=== PATIENT | female | born 1945 | race Caucasian/White ===

== ENCOUNTER → 2023-10-01 07:55 | Outpatient (REF) | payer OTHER, SELFPAY | LOC: HWWDC 07:55 | PROVIDERS: ATTENDING PHYSICIAN Physician Assistant Medical | DX: Z12.31 Encounter for screening mammogram for malignant neoplasm of breast (principal) | CPT/HCPCS: 77063; 77067 ==

== ENCOUNTER → 2024-11-17 11:48 | Outpatient (REF) | payer OTHER, SELFPAY | LOC: HWWDC 11:48 | PROVIDERS: ATTENDING PHYSICIAN Physician Assistant Medical | DX: Z12.31 Encounter for screening mammogram for malignant neoplasm of breast (principal) | CPT/HCPCS: 77063; 77067 ==

== ENCOUNTER → 2024-12-06 09:02 | Outpatient (REF) | payer OTHER, SELFPAY | LOC: WDC 09:02 | PROVIDERS: ATTENDING PHYSICIAN Physician Assistant Medical | DX: R92.8 Other abnormal and inconclusive findings on diagnostic imaging of breast (principal) | CPT/HCPCS: 76642 ==

== ENCOUNTER 2024-12-31 16:08 | Inpatient (IN) | payer OTHER, SELFPAY ==
[2024-12-31 09:25] VITALS: BP 121/71
[2024-12-31 09:45] LABS: % Basophils 0.2 % (0-2); % Immature Granulocytes 0.5 % (0-0.5); % Lymphocytes 5.9 % (20.5-51.1); % Monocytes 8.9 % (1.7-9.3); % Neutrophils 84.5 % (42.2-75.2); Absolute Immature Granulocytes 0.1 10^3/uL (0-0.05); Absolute Lymphocytes 0.7 10^3/uL (1.2-3.4); Absolute Monocytes 1.1 10^3/uL (0.1-0.6); Absolute Neutrophils 10.5 10^3/uL (1.4-6.5); Hemoglobin 12.8 g/dL (12.0-16.0); Mean Corp Hgb Conc. 33.7 g/dL (33.0-37.0); Mean Corpuscular Hgb 29.5 pg (27.0-31.0); Mean Corpuscular Volume 87.6 fL (81.0-99.0); Mean Platelet Volume 10.3 fL (7.4-10.4); Nucleated Red Blood Cells % 0 %; Platelet Count 177 10^3/uL (130-400); Red Blood Cell Count 4.34 10^6/uL (4.20-5.40); Red Cell Dist. Width 13.3 % (11.5-14.5); White Blood Cell Count 12.4 10^3/uL (4.8-10.8)
[2024-12-31 10:00] LABS: ALT (SGPT) 43 U/L (0-35); AST (SGOT) 72 U/L (14-36); Albumin 3.7 g/dl (3.5-5.0); Alkaline Phosphatase 91 U/L (38-126); Blood Urea Nitrogen 19 mg/dl (7-17); Calcium 8.3 mg/dl (8.4-10.2); Carbon Dioxide 22 mmol/L (22-30); Chloride 103 mmol/L (98-107); Glucose 113 mg/dl (70-99); Potassium 3.9 mmol/L (3.5-5.1); Sodium 132 mmol/L (135-145); Total Bilirubin 0.6 mg/dl (0.2-1.3); Total Protein 6.9 g/dl (6.3-8.2); eGFR > 60.00
[2024-12-31 11:16] VITALS: BP 114/65
[2024-12-31 11:39] LABS: Urine Albumin 3+ (Neg - Trace); Urine Bilirubin Negative (Negative); Urine Character Slightly Cloudy (Clear); Urine Color Yellow; Urine Glucose Negative (Negative); Urine Ketone 3+ (Negative); Urine Leukocyte 3+ (Negative); Urine Nitrite Positive (Negative); Urine Occult Blood 4+ (Negative); Urine Urobilinogen Negative (Neg - 1+)
[2024-12-31 11:53] LABS: COVID-19 Antigen Negative (Negative)
[2024-12-31 11:57] LABS: Lactic Acid 1.2 mmol/L (0.7-2.0)
[2024-12-31 12:00] VITALS: BP 111/65
[2024-12-31] MEDS: NSS 1000 IV (12:00)
[2024-12-31 12:05] LABS: TSH Reflex To Free T4 0.67 uIU/ml (0.47-4.68)
[2024-12-31 12:09] LABS: Urine Bacteria Moderate (Negative); Urine White Cell >100 /HPF (0-5)
[2024-12-31 13:00] VITALS: BP 115/70
[2024-12-31] MEDS: ROCEPHIN 1000 MG IV (13:06)
--- NOTE | 2024-12-31 13:12 | ED.GENMED ---
History of Present Illness
General
Chief Complaint: Dizziness
Source: patient
Exam Limitations: none
Time Seen by Provider: 12/31/24 10:38
Nursing documentation reviewed up to this point in time: agreed with
History of Present Illness
History of Present Illness:
Pt presents to ED secondary to 3 day history of dizziness/nausea/back pain and decreased appetite, along with not feeling well and sleeping more. Denies fever. Denies vomiting/diarrhea. Denies recent travel. Denies sick contact. Denies recent change
in medications/diet. Denies dysuria/frequency. Denies previous history of similar symptoms.
Review of Systems
Review of Systems
Allergies reviewed?: Yes
All Other Systems: ROS reviewed and negative except as documented in HPI and ROS
Constitutional: Reports no symptoms
EENT: Reports no symptoms
Respiratory: Reports no symptoms
Cardiac: Reports no symptoms
ABD/GI: Reports nausea; Denies abdominal pain
: Reports no symptoms
Musculoskeletal: Reports back pain
Skin: Reports no symptoms
Neurological: Reports no symptoms
Phy Exam
Physical Exam
Physical Exam:
Physical Exam
General: mild distress, not acutely ill. afebrile
Head: nc/at. eomi
Neck: supple. no meningeal signs.
Heart: s1/s2 regular rate and rhythm
Lungs: no acute respiratory distress. clear bilaterally
Abdomen: normal bowel sounds. not tender.
Back: mild left CVA tenderness
Neuro: alert and oriented x 3. no focal neurological deficits
Skin: no rash
Psychiatric: well kept. interactive and cooperative
Extremities: no edema. no calf tenderness.
Course
Orders/Labs/Results
Orders:
Orders
12/31/24 09:28
Electrocardiogram (*1) Urgent
Reason for Study: Chest Pain
12/31/24 09:31
Complete Blood Count/With Diff Urgent
Comprehensive Metabolic Panel Urgent
Magnesium Urgent
Comment: ADD ON
TSH Reflex To Free T4 Urgent
Comment: ADD ON
12/31/24 11:01
Add On- LAB Urgent
Tests Added?: magnesium, TSH to reflex Free T4
12/31/24 11:04
0.9% Sodium Chloride 1000 ml [Nss] 1,000 ml IV BOLUS
12/31/24 11:23
COVID-19 Antigen Urgent
Source: Nasal Swab
Lactic Acid Q4H
Comment: CANCEL 2nd LACTIC ACID IF 1st LACTIC ACID IS LESS THAN 2
Urinalysis Reflex To Culture Urgent
Date Specimen was Collected: 12/31/24
Time Specimen was Collected: 11:09
Urine Microscopic Reflex Cult Urgent
Influenza A+B Rapid Molecular Urgent
YAMILE Source: Nasal Swab
Specimen Description:
Urine Culture Urgent
YAMILE Source: U
Specimen Description:
Date Specimen was Collected: 12/31/24
Time Specimen was Collected: 11:09
12/31/24 12:46
CT Abd/pel Without Iv Or Oral Urgent
Comment:
Reason For Exam: flank pain w hematuria
CefTRIAXone [Rocephin] 1,000 mg IV NOW STA
12/31/24 13:03
Sterile Water [Sterile Water For Injection] 10 ml .ROUTE .K-MED ONE
12/31/24 Dinner
Regular
At Your Request: Full Participation
Does patient need a safe tray?: No
12/31/24 15:17
Admit/Transfer Patient As Directed
Co-Sign Provider:
Level of Care: Inpatient admission
Assign to:: Medical/Surgical
Physician / Group: galen
Diagnosis: uti
Reason for Hospitalization: uti
Expected length of stay greater than two midnights?: Yes
ELOS- Estimated Length of Stay in days: 2
I certify the patient meets the requirements for IP care: Yes
Code Status As Directed
Resuscitation Status: Full Code
PRN Pain Medication Management As Directed
May give lesser potent ordered pain med per pt: Yes
preference::
Protocol:: Medication orders for pain may be administered in a
manner that supports deferring to patient preference
when the pt is:
- Requesting an ordered lesser potent pain medication.
Least to most potent pain medications are defined
as: acetaminophen < NSAID < tramadol < opioids
(morphine, oxycodone, hydromorphone).
- Requesting a lesser dose of the same medication IF
ORDERED.
- Requesting a less intrusive route of administration
if both routes are prescribed by the provider (PO <
IV).
12/31/24 16:16
Acetaminophen [Tylenol] 650 mg PO Q4HPRN PRN
CefTRIAXone [Rocephin] 1,000 mg IV Q24H
Ibuprofen [Motrin] 400 mg PO DAILYPRN PRN mild pain
Ondansetron Injectable [Zofran] 4 mg IV Q6HPRN PRN
Ondansetron Injectable [Zofran] 4 mg IV Q6HPRN PRN
12/31/24 16:16
Echo 2D MMode Color/Doppler Routine
Reason for Study: pericardial effusion
Activity As Directed
Activity Level: As Tolerated
Vital Signs As Directed
Frequency: Per unit guidelines
DX Deep Vein Thrombosis Video Routine
12/31/24 20:00
Heparin 5,000 units SC Q12
01/01/25 06:00
Complete Blood Count/With Diff IN AM
Comprehensive Metabolic Panel IN AM
01/01/25 08:00
Cholecalciferol (Vitamin D3) [VITAMIN D3 (cholecalciferol)] 25 mcg PO DAILY
Levothyroxine [Synthroid] 112 mcg PO DAILY
calcium citrate 250 mg PO DAILY
omega 5-jew-vlk-fish oil [Fish Oil] 1 cap PO DAILY
Abnormal Lab Results
12/31/24 12/31/24
09: 11:23
WBC 12.4 H 10^3/uL
(4.8-10.8)
Abs Immat Gran (auto) 0.1 H 10^3/uL
(0-0.05)
Absolute Neuts (auto) 10.5 H 10^3/uL
(1.4-6.5)
Absolute Lymphs (auto) 0.7 L 10^3/uL
(1.2-3.4)
Absolute Monos (auto) 1.1 H 10^3/uL
(0.1-0.6)
Neutrophils % 84.5 H %
(42.2-75.2)
Lymphocytes % 5.9 L %
(20.5-51.1)
Sodium 132 L mmol/L
(135-145)
BUN 19 H mg/dl
(7-17)
Glucose 113 H mg/dl
(70-99)
Calcium 8.3 L mg/dl
(8.4-10.2)
AST 72 H U/L
(14-36)
ALT 43 H U/L
(0-35)
Urine Ketones 3+ A
(Negative)
Ur Occult Blood Reflex 4+ A
(Negative)
Urine Nitrite (Reflex) Positive A
(Negative)
Leukocyte Esterase Rfl 3+ A
(Negative)
Urine WBC (Reflex) >100 A /HPF
(0-5)
Urine Bacteria (Reflex) Moderate A
(Negative)
Urine Albumin (Reflex) 3+ A
(Neg - Trace)
12/31/24 09:31
12/31/24 09:31
Vital Signs
Initial and Last Documented VS:
Initial Vital Signs
Temp Pulse Resp BP Pulse Ox
99.4 F 104 18 121/71 94
12/31/24 09:25 12/31/24 09:25 12/31/24 09:25 12/31/24 09:25 12/31/24 09:25
Last Documented Vital Signs
Temp Pulse Resp BP Pulse Ox
102 F H 84 19 118/59 91
12/31/24 16:00 12/31/24 16:00 12/31/24 16:00 12/31/24 16:00 12/31/24 16:00
MDM/Problems Addressed
MDM/Problems Addressed:
History, exam, and urinalysis consistent with likely UTI. However in light of patient's overall presentation along with back pain, will obtain CT abdomen pelvis to evaluate for potential kidney stone involvement. In addition, patient with clinical
concern for potential development of bacteremia. As such, will recommend admission for IV antibiotics.
CT report reviewed and discussed with the patient, including likely incidental finding of pericardial effusion.
*Pulse Oximetry
Patient hypoxic: yes (91%)
*Critical Care Note
Total Time (30-74mins, 75-104mins- exclusive of procedures): Not Applicable
ED Attending Note
-
Portions of this chart may have been created with voice recognition software.� Occasional wrong word or��sound alike� substitutions may have occurred due to the inherent limitations of voice recognition software.
Discharge Plan
Departure
Patient Disposition: Admit
Date of Disposition: 12/31/24
Time of Disposition: 14:48
Admit to: Telemetry
Presentation/result/management discussed w/ accepting MD/DO: Hospitalist
Discharge Problem:
Acute UTI
Interventions
Interventions:
*Risk Screen - Suicide Last Done: 12/31/24 09:25
*General Assessment Last Done: 12/31/24 09:25
*Neglect/Abuse Screening Last Done: 12/31/24 11:30
*ED- Fall Risk Assessment Last Done: 12/31/24 11:30
*ED COVID-19 Vaccine History Last Done: 12/31/24 16:23
*Nursing Disposition Last Done: 12/31/24 16:31
ED- Neurological Assessment Last Done: 12/31/24 11:30
ED Swallowing Screen Last Done: 12/31/24 11:30
Discharge Date and Time
Discharge Date/Time: 12/31/24 16:38
--- NOTE | 2024-12-31 15:19 | HPS.HSE ---
Family Physician
-
Family Physician: Nini San MD
Chief Complaint
-
abdominal pain
History of Present Illness
79-year-old female past medical history of hypothyroidism presenting with 3 days of dizziness, nausea and suprapubic abdominal pain radiating to her back and decreased appetite and not feeling well and sleeping more. No fevers but having chills.
No vomiting or diarrhea. No recent travel. No sick contacts. No recent change in medications. No urinary frequency or burning.
Drinks alcohol occasionally. Denies smoking.
Medical History
Past Medical History
Past Medical History: Reports Other (hypothyroidism)
Past Surgical History: Reports None
Social History
Tobacco: Non-smoker
Alcohol: Occasional
Drug: None
Family History
Family History: Not pertinent
Allergies / Home Medications
Allergies reflects when Allergies were last updated in [facility].
Home Medications with original date entered in [facility]
Allergy/Medication List:
Allergies
Allergy/AdvReac Type Severity Reaction Status Date / Time
NKA - No Known Allergies Allergy Unknown Uncoded 12/31/24 09:25
Review of Systems
-
History Source: Patient
A 12 point ROS was completed and negative except as noted: Yes
Constitutional: Reports No Symptoms
EENT: Reports No Symptoms
Respiratory: Reports No Symptoms
Cardiac: Reports No Symptoms
Abdomen/GI: Reports See HPI
: Reports No Symptoms
Musculoskeletal: Reports No Symptoms
Skin: Reports No Symptoms
Neurological: Reports No Symptoms
Endocrine: Reports No Symptoms
Hematologic/Lymphatic: Reports No Symptoms
Psych: Reports No Symptoms
Physical Exam
Vital Signs
Vital Signs
Temp Pulse Resp BP Pulse Ox
99.4 F 84 22 115/70 94
12/31/24 09:25 12/31/24 15:00 12/31/24 15:00 12/31/24 13:00 12/31/24 09:25
Physical Exam
General: Well Developed, Well Nourished and No Apparent Distress
HEENT: NormoCephalic, Moist mucous membranes and Atraumatic
Respiratory: Clear
Cardiac: S1/S2 and Regular Rhythm; No Murmur or Rub
GI: Soft, Non Distended, Normal Bowel Sounds and Tender (suprapubic ); No Organomegaly
Rectal: Deferred by Provider
Musculoskeletal: No Clubbing, No Cyanosis and No Edema
Skin: No Rash
Neuro: Nonfocal/grossly intact
Laboratory Results
-
12/31/24 09:31
12/31/24 09:31
Laboratory Results
Lactic Acid Cancelled 12/31/24 15:15
Total Bilirubin 0.6 mg/dl (0.2-1.3) 12/31/24 09:31
AST 72 U/L (14-36) H 12/31/24 09:31
ALT 43 U/L (0-35) H 12/31/24 09:31
Alkaline Phosphatase 91 U/L (38-126) 12/31/24 09:31
Data Reviewed
-
Lab Data: Labs Reviewed by me
Old Records: Reviewed
Impression/Plan
-
IMPRESSION:
PLAN:
# Urinary tract infection
-Leukocytosis
-COVID and flu negative
- Urinalysis showed greater than 100 WBC, +2 leukocyte esterase and positive nitrates, moderate bacteria,
- CT abdomen pelvis shows small to moderate-sized pericardial effusion, no other notable finding
-IV fluids given
- Urine culture
- Ceftriaxone
- Zofran
# Incidental small to moderate pericardial effusion
- Check echo
- Follow-up with cardiology
# Transaminitis unclear etiology
- May be chronic, outpatient follow-up
Hypothyroidism
- Continue levothyroxine
Full code
DVT prophylaxis�heparin
Regular diet
[2024-12-31 16:00] VITALS: BP 118/59; BMI 21.0
[2024-12-31] MEDS: TYLENOL 650 MG PO (17:56)
[2024-12-31] MEDS: ZOFRAN 4 MG IV (17:57)
[2024-12-31] MEDS: HEPARIN 5000 UNITS SC (20:55)
[2025-01-01] VITALS: BP 97/64
[2025-01-01] MEDS: TYLENOL 650 MG PO ×2 (02:14→22:33)
[2025-01-01 05:26] LABS: % Basophils 0.2 % (0-2); % Immature Granulocytes 0.1 % (0-0.5); % Monocytes 12.5 % (1.7-9.3); % Neutrophils 77.2 % (42.2-75.2); Absolute Lymphocytes 0.8 10^3/uL (1.2-3.4); Absolute Neutrophils 6.2 10^3/uL (1.4-6.5); Hematocrit 37.3 % (37.0-47.0); Hemoglobin 12.7 g/dL (12.0-16.0); Mean Corpuscular Volume 88.2 fL (81.0-99.0); Mean Platelet Volume 10.9 fL (7.4-10.4); Nucleated Red Blood Cells % 0 %; Platelet Count 169 10^3/uL (130-400); Red Blood Cell Count 4.23 10^6/uL (4.20-5.40); Red Cell Dist. Width 13.4 % (11.5-14.5)
[2025-01-01] MEDS: SYNTHROID 112 MCG PO (05:35)
[2025-01-01 05:42] LABS: ALT (SGPT) 37 U/L (0-35); AST (SGOT) 46 U/L (14-36); Albumin 3.3 g/dl (3.5-5.0); Alkaline Phosphatase 85 U/L (38-126); Blood Urea Nitrogen 16 mg/dl (7-17); Calcium 7.9 mg/dl (8.4-10.2); Carbon Dioxide 24 mmol/L (22-30); Chloride 107 mmol/L (98-107); Estimated Creatinine Clearance 48 ml/min; Glucose 88 mg/dl (70-99); Potassium 4.2 mmol/L (3.5-5.1); Sodium 136 mmol/L (135-145); Total Bilirubin 0.5 mg/dl (0.2-1.3); Total Protein 6.2 g/dl (6.3-8.2); eGFR > 60.00
[2025-01-01 05:44] VITALS: BMI 20.5
[2025-01-01 07:00] VITALS: BP 101/58
[2025-01-01] MEDS: OSCAL CAL 500 250 MG PO (09:49)
[2025-01-01] MEDS: VITAMIN D3 (cholecalciferol) 25 MCG PO (09:51)
[2025-01-01] MEDS: HEPARIN 5000 UNITS SC ×2 (09:51→19:37)
--- NOTE | 2025-01-01 12:01 | W.PN.HOSP.TC ---
Today's Communication/Plan
-
Continue with IV antibiotic
Await for echocardiogram
Await for culture data
Assessment / Plan
Assessment / Plan
# Sepsis likely secondary to suspected UTI (leukocytosis, fever, tachycardia)-poa
-Leukocytosis
-COVID and flu negative
- Urinalysis showed greater than 100 WBC, +2 leukocyte esterase and positive nitrates, moderate bacteria,
- CT abdomen pelvis shows small to moderate-sized pericardial effusion, no other notable finding
-IV fluids given
- Urine culture -pending in lab. If spikes fever again check blood cultures
- Ceftriaxone
- Zofran
# Incidental small to moderate pericardial effusion
- Check echo
- Blood pressure stable. Patient asymptomatic. Continue to monitor closely.
# Transaminitis unclear etiology
- May be chronic, outpatient follow-up
Hypothyroidism
- Continue levothyroxine
Full code
DVT prophylaxis�heparin
Regular diet
Anticipated Discharge: 24 - 48 hours
Subjective/Interval History
-
Date of Service: January 01, 2025
States some mild lower back discomfort
Denies any suprapubic abdominal pain
Denies any chest pain or shortness of breath
Objective Data
-
Labs:
Laboratory Results
01/01/25
05:01
WBC 8.0
Hgb 12.7
Hct 37.3
Plt Count 169
Sodium 136
Potassium 4.2
Chloride 107
Carbon Dioxide 24
BUN 16
Creatinine 0.8
Glucose 88
Calcium 7.9 L
Total Bilirubin 0.5
AST 46 H
ALT 37 H
Alkaline Phosphatase 85
Vital Signs:
Vital Signs
Temp Pulse Resp BP Pulse Ox
98.0 F 64 18 101/58 97
01/01/25 07:00 01/01/25 07:00 01/01/25 07:00 01/01/25 07:00 01/01/25 07:00
I&O
12/31/24 01/01/25 01/02/25
06:59 06:59 06:59
Intake Total 120 / 120
Balance 120 / 120
Physical Exam
-
General: Well Developed and No Apparent Distress
HEENT: Normocephalic, Atraumatic and Moist Mucous Membranes
Respiratory: Clear to Auscultation
Cardiac: Regular Rhythm and S1/S2; Negative Murmur, Rub or Gallop
GI: Soft, Nontender, Nondistended and Normal Bowel Sounds; Negative Organomegaly
Rectal: Deferred by Provider
Musculoskeletal: No Clubbing, No Cyanosis and No Edema
Skin: Negative Rash
Neuro: Awake and Nonfocal/Grossly Intact
Psych: Calm
Data Reviewed
-
Total Time Spent with Patient (in minutes): 55
[2025-01-01] MEDS: STERILE WATER FOR INJECTION 10 ML IV (14:19)
[2025-01-01] MEDS: ROCEPHIN 1000 MG IV (14:19)
[2025-01-01] MEDS: FLUSH (NSS) 2 FLUSH IV (14:19)
[2025-01-01 15:00] VITALS: BP 112/62
--- NOTE | 2025-01-01 15:40 | CM ---
Patient seen bedside, initial assessment completed. Patient is a 79-year-old female past medical history of hypothyroidism presenting with 3 days of dizziness, nausea and suprapubic abdominal pain radiating to her back.
Patient resides alone in a 2STH, 1 step to enter. Patient independent in all areas, no DME reported. Denies SNF/HC hx. OP therapy in the past.
Address, point of contact and insurance verified
PCP: Duglas Mcpherson
Pharmacy: [facility]
Cont w/ IV abx
Plan: Home, no needs anticipated
[2025-01-01 23:00] VITALS: BP 115/59
[2025-01-02] MEDS: SYNTHROID 112 MCG PO (05:04)
[2025-01-02 06:00] VITALS: BMI 20.4
[2025-01-02 06:37] LABS: Hematocrit 38.6 % (37.0-47.0); Mean Corp Hgb Conc. 33.7 g/dL (33.0-37.0); Mean Corpuscular Hgb 29.8 pg (27.0-31.0); Mean Corpuscular Volume 88.5 fL (81.0-99.0); Mean Platelet Volume 11.1 fL (7.4-10.4); Platelet Count 192 10^3/uL (130-400); Red Blood Cell Count 4.36 10^6/uL (4.20-5.40); Red Cell Dist. Width 13.2 % (11.5-14.5); White Blood Cell Count 5.1 10^3/uL (4.8-10.8)
[2025-01-02 06:57] LABS: Blood Urea Nitrogen 12 mg/dl (7-17); Calcium 8.3 mg/dl (8.4-10.2); Carbon Dioxide 29 mmol/L (22-30); Chloride 107 mmol/L (98-107); Estimated Creatinine Clearance 48 ml/min; Glucose 97 mg/dl (70-99); Potassium 4.7 mmol/L (3.5-5.1); Sodium 138 mmol/L (135-145); eGFR > 60.00
[2025-01-02 07:00] VITALS: BP 126/72
[2025-01-02 08:00] LABS: Absolute Neutrophils -Man Diff 2.6 10^3/uL (1.4-6.5); Band Neutrophils 5 % (0-3); Lymphocytes 32 % (20-51); Monocytes 16 % (2-9); Platelets Checked Yes; Segmented Neutrophils 47 % (42-75)
[2025-01-02 08:03] LABS: Normal RBC Morphology Yes; Total Cells Counted 100
[2025-01-02 09:01] LABS: Total Bilirubin 0.2 mg/dl (0.2-1.3)
[2025-01-02 09:03] LABS: ALT (SGPT) 39 U/L (0-35); AST (SGOT) 48 U/L (14-36); Albumin 3.2 g/dl (3.5-5.0); Alkaline Phosphatase 94 U/L (38-126); Direct Bilirubin 0.2 mg/dl (0.0-0.4); Total Protein 6.1 g/dl (6.3-8.2)
[2025-01-02] MEDS: OSCAL CAL 500 250 MG PO (09:12)
[2025-01-02] MEDS: HEPARIN 5000 UNITS SC ×2 (09:12→20:28)
[2025-01-02] MEDS: VITAMIN D3 (cholecalciferol) 25 MCG PO (09:12)
[2025-01-02] MEDS: STERILE WATER FOR INJECTION 20 ML IV (12:28)
[2025-01-02] MEDS: ROCEPHIN 2000 MG IV (12:28)
--- NOTE | 2025-01-02 13:06 | W.PN.HOSP.TC ---
Today's Communication/Plan
-
Increase ceftriaxone dose
Check blood cultures
Check lumbar spine x-ray
Trend fever curve
Assessment / Plan
Assessment / Plan
# Sepsis likely secondary to suspected E. coli UTI (leukocytosis, fever, tachycardia)-poa
- Leukocytosis resolved
- COVID and flu negative
- Urinalysis showed greater than 100 WBC, +2 leukocyte esterase and positive nitrates, moderate bacteria,
- IV fluids given
- Check blood cultures.
- Ceftriaxone dose increased to 2 g
- Zofran
- Monitor fever curve
# Incidental pericardial effusion
- Echo with EF of 55%. Normal ventricular size and function. Normal diastolic function. Mild tricuspid and pulmonary regurgitation.Small anterior, echo-free pericardial effusion without echocardiographic evidence for hemodynamic compromise.
- Blood pressure stable. Patient asymptomatic. Continue to monitor closely.
# Transaminitis unclear etiology
- Chronic versus related to sepsis. Improving.
# Large colonic stool burden noted on CAT scan
- Start patient on bowel regimen
# Lower back pain secondary to thoracolumbar degenerative disease
- CAT scan noted with degenerative disease of the lumbar spine without any compression fracture. Will repeat lumbar x-ray.
#Hypothyroidism
- Continue levothyroxine
Full code
DVT prophylaxis�heparin
Regular diet
Anticipated Discharge: 24 - 48 hours
Subjective/Interval History
-
Date of Service: January 02, 2025
Overnight patient spiked fevers
Patient states of feeling warm and with sweating and chills
States her appetite has improved
Objective Data
-
Labs:
Laboratory Results
01/02/25
05:57
WBC 5.1
Hgb 13.0
Hct 38.6
Plt Count 192
Sodium 138
Potassium 4.7
Chloride 107
Carbon Dioxide 29
BUN 12
Creatinine 0.8
Glucose 97
Calcium 8.3 L
Total Bilirubin 0.2
AST 48 H
ALT 39 H
Alkaline Phosphatase 94
Vital Signs:
Vital Signs
Temp Pulse Resp BP Pulse Ox
98.1 F 66 18 126/72 99
01/02/25 07:00 01/02/25 07:00 01/02/25 07:00 01/02/25 07:00 01/02/25 07:00
I&O
01/01/25 01/02/25 01/03/25
06:59 06:59 06:59
Intake Total 120 / 120 600 / 600
Balance 120 / 120 600 / 600
Physical Exam
-
General: Well Developed and No Apparent Distress
HEENT: Normocephalic, Atraumatic and Moist Mucous Membranes
Respiratory: Clear to Auscultation
Cardiac: Regular Rhythm and S1/S2; Negative Murmur, Rub or Gallop
GI: Soft, Nontender, Nondistended and Normal Bowel Sounds; Negative Organomegaly
Rectal: Deferred by Provider
Musculoskeletal: No Clubbing, No Cyanosis and No Edema
Skin: Negative Rash
Neuro: Awake and Nonfocal/Grossly Intact
Psych: Calm
Data Reviewed
-
Total Time Spent with Patient (in minutes): 52
[2025-01-02 14:18] VITALS: PULSE 67; O2SAT 99
--- NOTE | 2025-01-02 14:28 | PTOTSP ---
Patient receptive to participate in mobility and ambulating in hallway. Discussed taking multiple walks in hallway as tolerates and as cleared by RN to minimize deconditioning; patient verbalized understanding.
Will discharge at this time and if needs change please re-consult.
[2025-01-02] MEDS: LIDOCAINE 4% PATCH 1 PATCH TOPICAL (14:49)
[2025-01-02] MEDS: TYLENOL 650 MG PO (14:55)
[2025-01-02 16:01] VITALS: BP 129/62
[2025-01-02 23:10] VITALS: BP 128/86
--- NOTE | 2025-01-03 04:18 | DOWNTIME ---
Addendum entered by Tasneem He RN 01/03/25 14:20:
Downtime was 01/03/2025 from 0100 to 01/03/2025 at 0415
Original Note:
There was a [facility] Professor Downtime on 01/02/2025 from 0100 to 01/03/2025 at 0415. Downtime documentation of patient's care, including medication administrations, has been reconciled in the electronic record per guidelines. Refer to the
patient's paper chart under the miscellaneous tab to see printed paper medication records and downtime forms.
[2025-01-03] MEDS: SYNTHROID 112 MCG PO (05:17)
[2025-01-03 07:00] VITALS: BP 116/75
[2025-01-03 07:46] LABS: Hematocrit 38.8 % (37.0-47.0); Mean Corp Hgb Conc. 33.5 g/dL (33.0-37.0); Mean Corpuscular Hgb 29.3 pg (27.0-31.0); Mean Corpuscular Volume 87.4 fL (81.0-99.0); Mean Platelet Volume 10.5 fL (7.4-10.4); Platelet Count 226 10^3/uL (130-400); Red Blood Cell Count 4.44 10^6/uL (4.20-5.40); Red Cell Dist. Width 13.3 % (11.5-14.5); White Blood Cell Count 5.2 10^3/uL (4.8-10.8)
[2025-01-03] MEDS: OSCAL CAL 500 250 MG PO (08:02)
[2025-01-03] MEDS: VITAMIN D3 (cholecalciferol) 25 MCG PO (08:03)
[2025-01-03] MEDS: LIDOCAINE 4% PATCH TOPICAL ×2 (08:04→08:11)
[2025-01-03] MEDS: HEPARIN 5000 UNITS SC (08:04)
[2025-01-03 08:20] LABS: Blood Urea Nitrogen 9 mg/dl (7-17); Calcium 8.3 mg/dl (8.4-10.2); Carbon Dioxide 25 mmol/L (22-30); Chloride 108 mmol/L (98-107); Estimated Creatinine Clearance 55 ml/min; Glucose 96 mg/dl (70-99); Potassium 4.4 mmol/L (3.5-5.1); Sodium 140 mmol/L (135-145); eGFR > 60.00
[2025-01-03 10:30] LABS: Absolute Neutrophils -Man Diff 2.6 10^3/uL (1.4-6.5); Band Neutrophils 3 % (0-3); Lymphocytes 36 % (20-51); Monocytes 13 % (2-9); Segmented Neutrophils 47 % (42-75)
[2025-01-03 10:31] LABS: Eosinophils 1 % (0-6); Normal RBC Morphology Yes; Platelets Checked Yes; Total Cells Counted 100
--- NOTE | 2025-01-03 11:56 | W.PN.HOSP.TC ---
Today's Communication/Plan
-
P.o. antibiotics on discharge
Assessment / Plan
Assessment / Plan
# Sepsis likely secondary to suspected E. coli UTI (leukocytosis, fever, tachycardia)-poa
- Leukocytosis resolved
- COVID and flu negative
- Urinalysis showed greater than 100 WBC, +2 leukocyte esterase and positive nitrates, moderate bacteria,
- IV fluids given
- Check blood cultures in lab. Preliminary negative
- Ceftriaxone dose increased to 2 g
- Monitor fever curve. Remains afebrile for greater than 24 hours. No nausea no vomiting. No dysuria. No flank pain.
# Incidental pericardial effusion
- Echo with EF of 55%. Normal ventricular size and function. Normal diastolic function. Mild tricuspid and pulmonary regurgitation.Small anterior, echo-free pericardial effusion without echocardiographic evidence for hemodynamic compromise.
- Blood pressure stable. Patient asymptomatic. Continue to monitor closely.
# Transaminitis unclear etiology
- Chronic versus related to sepsis. Improving.
# Large colonic stool burden noted on CAT scan
- Start patient on bowel regimen
# Lower back pain secondary to thoracolumbar degenerative disease
- CAT scan noted with degenerative disease of the lumbar spine without any compression fracture. Lumbar spine x-ray with severe discogenic degenerative disease at L5/S1. Lidocaine patch and Tylenol recommended.
#Hypothyroidism
- Continue levothyroxine
Full code
DVT prophylaxis�heparin
Regular diet
More than 30 minutes spent in discharge including
Final examination of the patient
Summarizing hospital stay
Instructions for continuing care to all relevant caregivers
Preparation of discharge records, prescriptions, and referral forms
Total time spent (in minutes): 52
Anticipated Discharge: Today
Subjective/Interval History
-
Date of Service: January 03, 2025
states the back pain has resolved
remains afebrile
ambulating in hallway without difficulty
Objective Data
-
Labs:
Laboratory Results
01/03/25
06:46
WBC 5.2
Hgb 13.0
Hct 38.8
Plt Count 226
Sodium 140
Potassium 4.4
Chloride 108 H
Carbon Dioxide 25
BUN 9
Creatinine 0.7
Glucose 96
Calcium 8.3 L
Vital Signs:
Vital Signs
Temp Pulse Resp BP Pulse Ox
97.9 F 72 17 116/75 97
01/03/25 07:00 01/03/25 07:00 01/03/25 07:00 01/03/25 07:00 01/03/25 07:00
I&O
01/02/25 01/03/25 01/04/25
06:59 06:59 06:59
Intake Total 600 / 600 960 / 960 480 / 480
Balance 600 / 600 960 / 960 480 / 480
Physical Exam
-
General: Well Developed and No Apparent Distress
HEENT: Normocephalic, Atraumatic and Moist Mucous Membranes
Respiratory: Clear to Auscultation
Cardiac: Regular Rhythm and S1/S2; Negative Murmur, Rub or Gallop
GI: Soft, Nontender, Nondistended and Normal Bowel Sounds; Negative Organomegaly
Rectal: Deferred by Provider
Musculoskeletal: No Clubbing, No Cyanosis and No Edema
Skin: Negative Rash
Neuro: Awake and Nonfocal/Grossly Intact
Psych: Calm
--- NOTE | 2025-01-03 12:01 | W.DCSUMMARY ---
Discharge Summary
Discharge Data
Date of Admission: 12/31/24
Date of Discharge: 01/03/25
-
Pending Results: No
Hospital Course
79-year-old female past medical history of hypothyroidism, presenting with complaints of dizziness nausea and suprapubic abdominal pain. Patient upon admission received IV fluid resuscitation. Patient underwent urine analysis which was found to be
abnormal. Patient was on broad-spectrum antibiotics. Patient underwent CT abdomen pelvis without p.o. and IV contrast which was negative for renal calculus. Patient had episode of fever and ceftriaxone dose was increased. Urine culture resulted
with E. coli which was pansensitive. IV fluid was discontinued. Patient was tolerating diet. Patient underwent lumbar spine x-ray which showed severe degenerative disease. Lidocaine patch and Tylenol was recommended. Patient back pain resolved.
Patient was tolerating diet. Patient was ambulating without difficulty. Blood cultures were negative. Patient was also found to have a pericardial effusion on CAT scan and echo was done which showed trace effusion with no hemodynamic compromise.
Patient without any symptoms. Vital signs were stable. Patient without any chest pain or shortness of breath. Patient also had mild transaminitis could have been chronic versus sepsis related. LFTs improved recommending repeat blood work with
primary doctor. Patient be discharged home with p.o. antibiotics.
Discharge Plan
-
Patient Disposition: Home with Home Care
Discharge Diagnosis/Procedures: Sepsis likely secondary to E. coli urinary tract infection
Incidental pericardial effusion
transaminitis
Condition: Fair
Diet: Regular
Activity: No restrictions
Driving Restrictions: As prior to admission
Blood Work: CMP in 1 week via primary doctor.
Referrals:
Nini San MD [Family Provider, Family Practice] - in less than 1 week
Prescriptions:
New
lidocaine 4 % Adhesive Patch,Medicated
1 patch topical DAILY 10 Days Qty: 10 0RF
cephalexin 500 mg capsule
500 mg PO Q6H 7 Days Qty: 28 0RF
Continued
ibuprofen 200 mg Tablet
400 mg PO DAILYPRN PRN (Reason: mild pain)
levothyroxine 112 mcg tablet
112 mcg PO DAILY
calcium citrate 250 mg calcium Tablet
250 mg PO DAILY
cholecalciferol (vitamin D3) 25 mcg (1,000 unit) Tablet
25 mcg PO DAILY
omega 3-kvx-dsj-fish oil [Fish Oil] 1,000 (120-180) mg Capsule
1 cap PO DAILY
Discharge Orders:
Discharge Patient (As Directed); Ordered 01/03/25
Ordered By: Arron Hickey
Discharge Date and Time
Print Language: LATVIAN
--- NOTE | 2025-01-03 12:25 | CM ---
Chart reviewed. PO abx at d/c
Per nurse, patient poss d/c later today. Spoke w/ patient shared she may d/c today as well
IMM verbally reviewed, copy provided, copy on chart
No CM needs at this time
Plan: Home, no needs
[2025-01-03] MEDS: STERILE WATER FOR INJECTION 20 ML IV (12:36)
[2025-01-03] MEDS: ROCEPHIN 2000 MG IV (12:36)
== END 2025-01-03 15:28 | disposition home or self-care (01) | DRG 872 ==
LOC: 4 WEST ACU 16:08
PROVIDERS: Emergency Medicine; ADMITTING PHYSICIAN Hospitalist; ATTENDING PHYSICIAN Hospitalist; EMERGENCY PHYSICIAN Emergency Medicine; FAMILY PHYSICIAN Family Medicine
DX: A41.9 Sepsis, unspecified organism (principal); N39.0 Urinary tract infection, site not specified; I31.39 Other pericardial effusion (noninflammatory); B96.20 Unspecified Escherichia coli [E. coli] as the cause of diseases classified elsewhere; M47.815 Spondylosis without myelopathy or radiculopathy, thoracolumbar region; D72.829 Elevated white blood cell count, unspecified; R74.01 Elevation of levels of liver transaminase levels; E03.9 Hypothyroidism, unspecified; K59.00 Constipation, unspecified; Z11.52 Encounter for screening for COVID-19; Z79.899 Other long term (current) drug therapy
CPT/HCPCS: 72100; 74176; 80048; 80053; 81003; 81015; 82248; 83605; 83735; 84443; 85025; 87040; 87077; 87086; 87186; 87502; 87811; 93005; 93306; 96361; 96374; 97116; 97162; 99285

== ENCOUNTER → 2025-03-23 06:59 | Outpatient (REF) | payer OTHER, SELFPAY | LOC: RAD 06:59 | PROVIDERS: ATTENDING PHYSICIAN Physician Assistant Medical | DX: R31.29 Other microscopic hematuria (principal); Z92.89 Personal history of other medical treatment | CPT/HCPCS: 74178; Q9967 ==

== ENCOUNTER → 2025-07-10 07:56 | Outpatient (REF) | payer OTHER, SELFPAY | LOC: HWRAD 07:56 | PROVIDERS: ATTENDING PHYSICIAN Internal Medicine Rheumatology; FAMILY PHYSICIAN Physician Assistant Medical | DX: M81.0 Age-related osteoporosis without current pathological fracture (principal) | CPT/HCPCS: 77080 ==